=== PATIENT | female | born 1950 | race Asian ===

== ENCOUNTER 2017-06-13 10:55 | Outpatient (CLI) | payer MEDICARE, BC ==
[2017-06-13 18:14] LABS: CHOL/HDL RATIO 4.7 (<4.4); CHOLESTEROL 213 mg/dL; GLUCOSE,FASTING 111 mg/dL (70-100); HDL CHOLESTEROL 45 mg/dL; LDL CHOLESTEROL,CALCULATED 156 mg/dL; LDL/HDL RATIO 3.5 (<4.4); VLDL CHOLESTEROL 12 mg/dL
[2017-06-14 15:36] LABS: HEPATITIS C ANTIBODY NON-REACTIVE (NON-REACTIVE)
== END 2017-06-13 10:56 | disposition home or self-care (01) ==
LOC: LAB.F 10:55
PROVIDERS: ATTEND Internal Medicine
DX: Z00.00 Encounter for general adult medical examination without abnormal findings (principal); E78.5 Hyperlipidemia, unspecified; L70.9 Acne, unspecified; J30.9 Allergic rhinitis, unspecified; M19.90 Unspecified osteoarthritis, unspecified site; R73.01 Impaired fasting glucose; Z11.59 Encounter for screening for other viral diseases
CPT/HCPCS: 36415; 80061; 82947; 83721; 86803

== ENCOUNTER 2017-07-05 10:22 | Outpatient (CLI) | payer MEDICARE, BC ==
--- NOTE | 2017-07-09 14:45 | DEXA Report ---
DEXA: 07/05/2017 CLINICAL INDICATION: Postmenopausal. TECHNIQUE: Dual energy x-ray absorptiometry (DXA) was performed on a [employer] system. Regions measured are the AP spine, femoral neck, and, if needed, forearm. COMPARISON: None. In accordance with the International Society for Clinical Densitometry (ISCD) guidelines, data from previous exams may be reanalyzed using current recommendations and techniques. This is done to allow a more accurate basis for comparison with the current study. FINDINGS Data for the lumbar spine is as follows: REGION BMD (g/cm/cm) T-SCORE Z-SCORE L1 1.168 0.3 2.2 L2 1.213 0.1 2.0 L3 1.273 0.6 2.5 L4 1.279 0.7 2.5 L1-L4 1.238 0.5 2.3 NOTE: All evaluable vertebrae are used for classification. Data for the hip is as follows: REGION BMD (g/cm/cm) T-SCORE Z-SCORE Neck 0.859 -1.3 0.4 TOTAL 0.950 -0.5. 1.0 NOTE: The femoral neck or total proximal femur, whichever is lowest, is used for classification. IMPRESSION WHO CLASSIFICATION BASED ON THE INTERNATIONAL REFERENCE STANDARD IS OSTEOPENIA (LEFT FEMORAL NECK). FRACTURE RISK INCREASED. RECOMMENDATION: Patients with diagnosis of osteoporosis or osteopenia should have regular bone mineral density assessment. For those eligible for Medicare, routine testing is allowed once every 2 years. Testing frequency can be increased for patients who have rapidly progressing disease or for those who are receiving medical therapy to restore bone mass. COMMENT World Health Organization (WHO) definitions for osteoporosis and osteopenia: NORMAL BMD: T-score at 1.0 or higher, fracture risk is low. OSTEOPENIA BMD: T-score between 1.0 and -2.5, fracture risk is increased. OSTEOPOROSIS BMD: T-score at 2.5 or lower, fracture risk high. National Osteoporosis Foundation recommends: 1. Obtain adequate dietary calcium (at least 1200 mg per day) and vitamin D (400 -800 international units per day). 2. Participate, as appropriate, in regular weightbearing and muscle- strengthening exercise. 3. Avoid tobacco use and reduce alcohol and caffeine intake. 4. For more detailed information see the website at www.NOF.org. TD: 07/05/2017 16:34 ZHANG
== END 2017-07-05 10:23 | disposition home or self-care (01) ==
LOC: DI 10:22
PROVIDERS: ATTEND Internal Medicine
DX: M85.88 Other specified disorders of bone density and structure, other site (principal)
CPT/HCPCS: 77080

== ENCOUNTER 2017-07-05 10:23 | Outpatient (CLI) | payer MEDICARE, BC ==
--- NOTE | 2017-07-09 13:07 | Mammography Report ---
DIGITAL SCREENING MAMMOGRAM: 07/05/2017 CLINICAL INDICATION: A 67-year-old with history of late childbearing, family history of breast cancer for screening. COMPARISON: Films from [place], [place] dated 08/08/2013, 08/28/2012, 10/13/2011, 09/19/2010, 07/20/2009. TECHNIQUE: Routine CC and MLO projections were obtained of the breasts. FINDINGS: The breasts again demonstrate heterogeneously dense fibroglandular parenchyma bilaterally. Coarse, typically benign calcifications are present. No suspicious masses, clustered microcalcifications, or regions of architectural distortion are identified. IMPRESSION: BENIGN FINDINGS. RECOMMENDATION: Routine annual screening unless otherwise clinically indicated. BIRADS CATEGORY 2 - BENIGN FINDINGS. STANDARD QUALIFYING STATEMENTS: 1. This examination was reviewed with the aid of Computer-Aided Detection (CAD). 2. A negative or benign imaging report should not delay biopsy if clinically suspicious findings are present. Consider surgical consultation if warranted. More than 5% of cancers are not identified by imaging. 3. Dense breasts may obscure an underlying neoplasm. TD: 07/09/2017 13:07
== END 2017-07-05 10:24 | disposition home or self-care (01) ==
LOC: DI 10:23
PROVIDERS: ATTEND Internal Medicine
DX: Z12.31 Encounter for screening mammogram for malignant neoplasm of breast (principal); Z80.3 Family history of malignant neoplasm of breast
CPT/HCPCS: 77067

== ENCOUNTER 2018-06-26 08:49 | Outpatient (CLI) | payer MEDICARE, BC ==
[2018-06-26 09:28] LABS: CHOL/HDL RATIO 3.8 (<4.4); CHOLESTEROL 246 mg/dL; GLUCOSE,FASTING 114 mg/dL (70-100); HDL CHOLESTEROL 64 mg/dL; LDL CHOLESTEROL,CALCULATED 159 mg/dL; LDL/HDL RATIO 2.5 (<4.4); VLDL CHOLESTEROL 23 mg/dL
== END 2018-06-26 08:50 | disposition home or self-care (01) ==
LOC: LAB 08:49
PROVIDERS: ATTEND Internal Medicine
DX: J30.9 Allergic rhinitis, unspecified (principal); E78.5 Hyperlipidemia, unspecified; M19.90 Unspecified osteoarthritis, unspecified site; R73.01 Impaired fasting glucose
CPT/HCPCS: 36415; 80061; 82947; 83721

== ENCOUNTER 2019-02-03 15:35 | Outpatient (CLI) | payer MEDICARE, BC ==
--- NOTE | 2019-02-04 16:19 | Ultrasound Report ---
Reason: POSTMENOPAUSAL BLEEDING Procedure Date: 02/03/2019 Accession Number: [id number] / [id number] Procedure: US - Pelvic w/Transvaginal CPT Code: FULL RESULT: EXAM: PELVIC ULTRASOUND EXAM DATE: 02/03/2019 04:50 PM. CLINICAL HISTORY: POSTMENOPAUSAL BLEEDING. COMPARISON: None. TECHNIQUE: Realtime transabdominal pelvic scan performed to identify the uterus and adnexa and as an overview of other pelvic structures, followed by transvaginal scan to provide greater detail of the uterus and adnexa, with static image documentation. FINDINGS: Uterus: 6.3 x 5.1 x 4.7 cm, volume 80 cc. Normal overall size, heterogeneous echotexture. Masses: Several fibroids the largest 2.2 x 2.3 x 2.3 cm, posterior lower uterine segment on the left, possibly pedunculated. Endometrium: Endometrial echo not well seen. Cervix: Unremarkable. Right Ovary: 2.1 x 0.9 x 0.9 cm, volume 0.9 cc. Normal echotexture and blood flow. Left Ovary: Not well seen. 1.4 x 1 x 1.5 cm, volume 1.1 cc. Grossly unremarkable. Free Fluid: None. Other: None. IMPRESSION: Myomatous changes of the uterus. Poorly defined endometrial echo. Consider hysteroscopy or MRI if bleeding persists. RADIA
== END 2019-02-03 15:36 | disposition home or self-care (01) ==
LOC: DI 15:35
PROVIDERS: ATTEND Obstetrics & Gynecology
DX: D25.9 Leiomyoma of uterus, unspecified (principal)
CPT/HCPCS: 76830; 76856

== ENCOUNTER 2019-02-04 07:31 | Outpatient (CLI) | payer MEDICARE, BC ==
--- NOTE | 2019-02-04 10:16 | Mammography Report ---
Reason: SCREENING MAMMO Procedure Date: 02/04/2019 Accession Number: [id number] / [id number] Procedure: MGS - Screening Mammo Dig Bilat CPT Code: FULL RESULT: EXAM: Screening Mammo Dig Bilat DATE: 02/04/2019 7:49 AM CLINICAL HISTORY: Routine screening TECHNIQUE: (B) - Bilateral CC and MLO views were obtained. COMPARISON: 07/05/2017, 08/08/2013, 08/28/2012, 10/13/2011, 09/19/2010, and 07/20/2009. PARENCHYMAL PATTERN: (VD) - The breasts demonstrate extremely dense parenchyma bilaterally, limiting the sensitivity of mammography. FINDINGS: No significant interval change. There are no suspicious masses, skin thickening, calcifications, or areas of distortion. IMPRESSION: Negative examination. BI-RADS category 1. RECOMMENDATION: (ANNUAL) - Recommend routine annual screening mammography. BI-RADS CATEGORY: (1) - Negative. STANDARD QUALIFYING STATEMENTS: 1. This examination was reviewed with the aid of Computer-Aided Detection (CAD). 2. A negative or benign imaging report should not preclude biopsy if clinically suspicious findings are present. 3. Dense breasts may obscure an underlying neoplasm. 4. This examination was reviewed without the aid of 3D breast imaging (tomosynthesis).
== END 2019-02-04 07:32 | disposition home or self-care (01) ==
LOC: DI.S 07:31
DX: Z12.31 Encounter for screening mammogram for malignant neoplasm of breast (principal)
CPT/HCPCS: 77067

== ENCOUNTER 2020-02-11 07:41 | Outpatient (CLI) | payer MEDICARE, BC ==
[2020-02-11 15:34] LABS: BASOPHILS # (AUTO) 0.1 10^3/uL (0.0-0.1); BASOPHILS % (AUTO) 1.7 %; EOSINOPHILS # (AUTO) 0.1 10^3/uL (0.0-0.7); EOSINOPHILS % (AUTO) 2.2 %; HGB - HEMOGLOBIN 12.9 g/dL (12.0-16.0); LYMPHOCYTES # (AUTO) 1.8 10^3/uL (1.5-3.5); LYMPHOCYTES % (AUTO) 39.4 %; MEAN CORPUSCULAR HEMOGLOBIN 30.6 pg (27.0-31.0); MEAN CORPUSCULAR VOLUME 92.9 fL (81.0-99.0); MEAN PLATELET VOLUME 9.7 fL (7.9-10.8); MONOCYTES # (AUTO) 0.4 10^3/uL (0.0-1.0); MONOCYTES % (AUTO) 8.4 %; NEUTROPHILS # (AUTO) 2.2 10^3/uL (1.5-6.6); NEUTROPHILS % (AUTO) 48.1 %; PLT - PLATELET COUNT 248 10^3/uL (130-450); RED BLOOD COUNT 4.21 10^6/uL (4.20-5.40); RED CELL DISTRIBUTION WIDTH 12.6 % (12.0-15.0); WHITE BLOOD COUNT 4.6 x10^3/uL (4.8-10.8)
[2020-02-11 15:55] LABS: ALBUMIN 4.1 g/dL (3.2-5.5); ALBUMIN/GLOBULIN RATIO 1.3 (1.0-2.2); ALKALINE PHOSPHATASE 45 IU/L (42-121); ALT ALANINE AMINOTRANSFERASE 17 IU/L (10-60); AST ASPARTATE AMINOTRANSFERASE 17 IU/L (10-42); BILIRUBIN,TOTAL 0.8 mg/dL (0.2-1.0); BUN - BLOOD UREA NITROGEN 15 mg/dL (6-20); CALCIUM 8.9 mg/dL (8.5-10.3); CARBON DIOXIDE - CO2 28 mmol/L (21-32); CHLORIDE 105 mmol/L (101-111); CHOL/HDL RATIO 4.3 (<4.4); CHOLESTEROL 234 mg/dL; CREATININE 0.6 mg/dL (0.4-1.0); GLUCOSE 101 mg/dL (70-100); HDL CHOLESTEROL 54 mg/dL; LDL CHOLESTEROL,CALCULATED 161 mg/dL; SODIUM 141 mmol/L (135-145); TOTAL PROTEIN 7.2 g/dL (6.7-8.2); VLDL CHOLESTEROL 19 mg/dL
== END 2020-02-11 07:42 | disposition home or self-care (01) ==
LOC: LAB.S 07:41
PROVIDERS: ATTEND Registered Nurse
DX: Z79.899 Other long term (current) drug therapy (principal); K21.9 Gastro-esophageal reflux disease without esophagitis; Z13.220 Encounter for screening for lipoid disorders; Z13.29 Encounter for screening for other suspected endocrine disorder
CPT/HCPCS: 36415; 80053; 80061; 83721; 84443; 85025

== ENCOUNTER 2020-07-07 12:56 | Outpatient (CLI) | payer MEDICARE, BC ==
--- NOTE | 2020-07-07 16:16 | DEXA Report ---
PROCEDURE: Dexa Spine and/or Hip INDICATIONS: POST MENOPAUSAL TECHNIQUE: Dual energy x-ray absorptiometry (DXA) was performed on a [employer] System. Regions measur ed are the AP Spine, femoral neck, and if needed forearm. COMPARISON: None. FINDINGS: Lumbar Spine: Bone Mineral Density 1.301 g/cm/cm,T score 1.0, compared to 0.5 Left Hip: Bone Mineral Density 0.959 g/cm/cm,T score -0.4, compared to -0.5 Left Femoral Neck: Bone Mineral Density 0.883 g/cm/cm, T score -1.1, compared to -1.3 (T score greater or equal to -1.0: NORMAL) (T score from -1.1 to -2.4: OSTEOPENIA) (T score less than or equal to -2.5 to: OSTEOPOROSIS) Impression: Minimal osteopenia within the left femoral neck. Overall improved bone mineral density. Patients with diagnosis of osteoporosis or osteopenia should have regular bone mineral density assess ment. For those eligible for Medicare, routine testing is allowed once every 2 years. Testing frequ ency can be increased for patients who have rapidly progressing disease or for those who are receivin g medical therapy to restore bone mass. Reviewed by: Kathleen Felix MD on 07/07/2020 4:15 PM PDT Approved by: Kathleen Felix MD on 07/07/2020 4:15 PM PDT Station ID: [id number]
== END 2020-07-07 12:57 | disposition home or self-care (01) ==
LOC: DI 12:56
PROVIDERS: ATTEND Registered Nurse
DX: M85.88 Other specified disorders of bone density and structure, other site (principal); Z78.0 Asymptomatic menopausal state

== ENCOUNTER 2020-07-07 13:03 | Outpatient (CLI) | payer MEDICARE, BC ==
--- NOTE | 2020-07-08 07:46 | Mammography Report ---
BILATERAL DIGITAL SCREENING MAMMOGRAM 3D/2D: 07/07/2020 CLINICAL: Routine screening. Comparison is made to exams dated: 02/04/2019 mammogram, 07/05/2017 mammogram - [facility], and 08/28/2012 mammogram - [facility]. The tissue of both breasts is predominant ly fatty. No significant masses, calcifications, or other findings are seen in either breast. There has been no significant interval change. IMPRESSION: NEGATIVE There is no mammographic evidence of malignancy. A 1 year screening mammogram is recommended. This exam was interpreted at Station ID: [id number]. NOTE: For mammograms, a report in lay terms will be sent to the patient. Approximately 15% of breast malignancies will not be visualized mammographically. In the management of a palpable breast mass, a negative mammogram must not discourage biopsy of a clinically suspicious lesion. Electronically Signed By: Isra White M.D., jr/penrad:07/07/2020 15:46:37 ACR BI-RADS Category 1: Negative 3341F PARENCHYMAL PATTERN: (F) - The breast(s) demonstrate(s) diffuse fatty replacement. BI-RADS CATEGORY: (1) - 1 RECOMMENDATION: (ANNUAL) - Recommend routine annual screening mammography. [id number] 1 year screening LATERALITY: (B)
== END 2020-07-07 13:04 | disposition home or self-care (01) ==
LOC: DI 13:03
DX: Z12.31 Encounter for screening mammogram for malignant neoplasm of breast (principal)

== ENCOUNTER 2021-04-07 08:21 | Outpatient (CLI) | payer MEDICARE, BC ==
--- NOTE | 2021-04-07 09:30 | XRAY Report ---
PROCEDURE: Shoulder 3 View LT INDICATIONS: LEFT SHOULDER PAIN TECHNIQUE: 4 views of the shoulder were acquired. COMPARISON: None. FINDINGS: Bones: No fractures or dislocations. [id number] acromioclavicular joint and glenohumeral join t osteophytic changes are seen. No suspicious bony lesions. Prominent downward exostosis involving mi d to distal left clavicular shaft is seen. Visualized ribs appear intact. Soft tissues: No suspicious soft tissue calcifications. IMPRESSION: No acute shoulder fracture or dislocation. Mild to moderate shoulder joint osteoarthriti s. Prominent downward excess tendinosis involving mid to distal left clavicular shaft, which may repr esent an old avulsion injury involving coracoclavicular ligament. Reviewed by: Alec Dias MD on 04/07/2021 9:29 AM PST Approved by: Alec Dias MD on 04/07/2021 9:29 AM [facility] Station ID: [id number]
--- NOTE | 2021-04-07 09:31 | XRAY Report ---
PROCEDURE: Knee 4 View LT INDICATIONS: LEFT KNEE JOINT PAIN TECHNIQUE: 4 views of the left knee(s) were acquired. COMPARISON: None. FINDINGS: Bones: No fractures or dislocations. There is no patella subluxation. Moderate tricompartmental oste oarthritis is seen most prominent in medial femoral tibial compartment. No suspicious bony lesions. Soft tissues: No joint effusion. No suspicious soft tissue calcifications. IMPRESSION: Moderate tricompartmental osteoarthritis in left knee most prominent in medial femoral t ibial compartment. No fracture or dislocation. No joint effusion. Reviewed by: Alec Dias MD on 04/07/2021 9:30 AM [facility] Approved by: Alec Dias MD on 04/07/2021 9:30 AM PST Station ID: [id number]
--- NOTE | 2021-04-07 09:32 | XRAY Report ---
PROCEDURE: Hip w/Pelvis 1V LT INDICATIONS: LEFT HIP PAIN TECHNIQUE: AP pelvis with lateral view(s) of the left hip(s). COMPARISON: None. FINDINGS: Bones: No fractures or dislocations. Symmetric appearing mild to moderate bilateral hip joint osteoa rthritis. No evidence of avascular necrosis of femoral head. Prominence of left superior femoral head neck junction is seen which can be seen associated with cam type femoral acetabular impingement. Pel omi ring appears intact. No suspicious bony lesions. Soft tissues: The visualized bowel gas pattern is normal. No suspicious soft tissue calcifications. IMPRESSION: Symmetric appearing mild to moderate bilateral hip joint osteoarthritis as above. No frac ture or dislocation. No evidence of avascular necrosis of femoral head. Reviewed by: Alec Dias MD on 04/07/2021 9:30 AM PST Approved by: Alec Dias MD on 04/07/2021 9:30 AM PST Station ID: [id number]
== END 2021-04-07 23:59 | disposition home or self-care (01) ==
LOC: DI.N 08:21
PROVIDERS: ATTEND Physician Assistant
DX: M19.012 Primary osteoarthritis, left shoulder (principal); M75.82 Other shoulder lesions, left shoulder; M17.12 Unilateral primary osteoarthritis, left knee; M16.0 Bilateral primary osteoarthritis of hip

== ENCOUNTER 2021-04-12 11:00 | Outpatient (CLI) | payer MEDICARE, BC ==
--- NOTE | 2021-04-12 12:12 | XRAY Report ---
PROCEDURE: Clavicle BILAT INDICATIONS: CLAVICLE PX TECHNIQUE: 2 views of the clavicle were acquired. COMPARISON: Left shoulder radiograph dated April 07, 2021. FINDINGS: BONES: No acute, displaced fracture or dislocation. Left: Mild osteophytosis of the AC joint. Right: Mild osteophytosis of the AC joint with narrowing. SOFT TISSUES: Calcific densities overlying the left humeral head, likely reflecting calcific tendinop athy. IMPRESSION: 1.Bilateral AC joint degeneration as detailed above. 2.Left rotator cuff calcific tendinopathy. Reviewed by: Viral Jarvis MD on 04/12/2021 12:11 PM PST Approved by: Viral Jarvis MD on 04/12/2021 12:11 PM PST Station ID: [id number]
== END 2021-04-12 23:59 | disposition home or self-care (01) ==
LOC: DI.N 11:00
PROVIDERS: ATTEND Physician Assistant
DX: M19.012 Primary osteoarthritis, left shoulder (principal); M19.011 Primary osteoarthritis, right shoulder; M75.92 Shoulder lesion, unspecified, left shoulder

== ENCOUNTER 2021-05-24 10:56 | Outpatient (CLI) | payer MEDICARE, BC ==
--- NOTE | 2021-05-25 13:43 | MRI Report ---
PROCEDURE: Cervical Spine W/O INDICATIONS: Cervical radiculopathy TECHNIQUE: Noncontrast sagittal T1 spin echo and T2 fast spin echo, sagittal STIR, foraminal oblique sagittal T2 fast spin echo, and axial gradient echo or T2 fast spin echo through the cervical spine. COMPARISON: None. FINDINGS: Image quality: Excellent. Alignment and Curvature: There is normal bony alignment. Bone Marrow: Marrow demonstrates normal overall signal. Spinal Cord: Visualized spinal cord has normal size and signal. No cerebellar tonsillar herniation. Paraspinous Soft Tissues: No paravertebral masses. Prevertebral soft tissues are normal in thicknes s. C2-C3: No spinal canal or neural foraminal stenosis. C3-C4: Moderate bilateral neural foraminal narrowing due to facet and uncovertebral hypertrophy. Mi ld spinal canal narrowing due to posterior disc-osteophyte complex and buckling of the ligamentum fla vum. C4-C5: Moderate bilateral neural foraminal stenosis due to facet and uncovertebral hypertrophy. Mild spinal canal narrowing due to posterior disc-osteophyte complex and buckling of the ligamentum flavu m. C5-C6: Moderate bilateral neural foraminal stenosis due to facet and uncovertebral hypertrophy. Mild spinal canal stenosis due to a combination of posterior disc-osteophyte complex and buckling of the ligamentum flavum. C6-C7: Moderate spinal canal stenosis due to a combination of posterior disc-osteophyte complex and buckling of the ligamentum flavum. CSF surrounding the ventral and dorsal cord is completely effaced. There is no cord signal abnormality or significant cord flattening. Facet and uncovertebral hypertro phy contribute to severe bilateral neural foraminal stenosis. C7-T1: No spinal canal or neural foraminal stenosis. IMPRESSION: Multilevel multifactorial degenerative changes. Moderate spinal canal stenosis at C6-C7 and mild spinal canal stenosis from C3-C4 through C5-C6. Moderate neural foraminal stenosis bilaterally from C3-C4 through C5-C6, with severe bilateral neural foraminal stenosis at C6-C7. Reviewed by: Isra White MD on 05/25/2021 1:42 PM PST Approved by: Isra White MD on 05/25/2021 1:42 PM PST Station ID: [id number]
--- NOTE | 2021-05-25 13:47 | MRI Report ---
PROCEDURE: Lumbar Spine W/O INDICATIONS: Lumbar radiculitis TECHNIQUE: Noncontrast sagittal T1 spin echo and T2 fast echo, sagittal STIR, axial T1 and T2 fast spin echo thr ough the lumbar spine. In cases with scoliosis, additional coronal T2 fast spin echo may be performe d. COMPARISON: None. FINDINGS: Image quality: Excellent. Alignment and Curvature: There is normal bony alignment. Bone Marrow: Marrow is of normal overall signal. No acute vertebral body compression fractures. Spinal Cord: Conus medullaris terminates at the normal level. Visualized cord demonstrates normal s ignal and size. Regional Soft Tissues: Prevertebral and paraspinous soft tissues are within normal limits. T12-L1: No spinal canal or neural foraminal stenosis. L1-L2: No spinal canal or neural foraminal stenosis. L2-L3: No spinal canal or neural foraminal stenosis. Moderate facet hypertrophy. L3-L4: Diffuse disc bulge flattens the ventral thecal sac with mild displacement of the descending L4 nerve roots in the subarticular zones, left greater than right. Moderate bulky facet hypertrophy f urther contributes to overall mild to moderate subarticular zone stenosis. Foraminal components of th e disc bulge and facet hypertrophy contribute to mild left and trace right neural foraminal stenosis. L4-L5: Diffuse disc bulge flattens and indents the ventral thecal sac, with mild displacement of th e descending bilateral L5 nerve roots in both subarticular zones, right greater than left (series 701 axial T2 image 11). Foraminal components of the disc bulge and facet hypertrophy contribute to mild right greater than left neural foraminal stenosis. L5-S1: Disc bulge flattens the ventral thecal sac without significant mass effect upon the traversi ng S1 nerve roots. No neural foraminal stenosis. Mild facet hypertrophy. IMPRESSION: No definite evidence of focal nerve root impingement, although there is displacement of the descendin g L4 and L5 nerve roots within the subarticular zones at the L3-L4 and L4-L5 levels, respectively. Co rrelate for any corresponding radicular symptoms. No significant neural foraminal narrowing identified. Reviewed by: Isra White MD on 05/25/2021 1:46 PM PST Approved by: Isra White MD on 05/25/2021 1:46 PM PST Station ID: [id number]
== END 2021-05-24 10:57 | disposition home or self-care (01) ==
LOC: DI 10:56
PROVIDERS: ATTEND Physical Medicine & Rehabilitation
DX: R93.7 Abnormal findings on diagnostic imaging of other parts of musculoskeletal system (principal); M47.26 Other spondylosis with radiculopathy, lumbar region; M48.061 Spinal stenosis, lumbar region without neurogenic claudication; M47.27 Other spondylosis with radiculopathy, lumbosacral region; M51.17 Intervertebral disc disorders with radiculopathy, lumbosacral region; M47.22 Other spondylosis with radiculopathy, cervical region; M50.11 Cervical disc disorder with radiculopathy, high cervical region; M48.02 Spinal stenosis, cervical region

== ENCOUNTER 2021-08-22 11:30 | Outpatient (CLI) | payer MEDICARE, BC ==
[2021-08-22 14:58] LABS: CHOLESTEROL 253 mg/dL; HDL CHOLESTEROL 64 mg/dL; LDL CHOLESTEROL,CALCULATED 168 mg/dL; LDL/HDL RATIO 2.6 (<4.4); TRIGLYCERIDES 103 mg/dL; VLDL CHOLESTEROL 21 mg/dL
[2021-08-22 19:58] LABS: ESTIMATED AVERAGE GLUCOSE 126 mg/dL (70-100)
== END 2021-08-22 11:31 | disposition home or self-care (01) ==
LOC: LAB.S 11:30
PROVIDERS: ATTEND Internal Medicine
DX: E78.5 Hyperlipidemia, unspecified (principal); R73.01 Impaired fasting glucose
CPT/HCPCS: 36415; 80061; 83036; 83721

== ENCOUNTER 2022-09-13 10:51 | Outpatient (CLI) | payer MEDICARE, BC ==
[2022-09-13 11:28] LABS: CHOLESTEROL 259 mg/dL; HDL CHOLESTEROL 64 mg/dL; LDL CHOLESTEROL,CALCULATED 179 mg/dL; LDL/HDL RATIO 2.8 (<4.4); TRIGLYCERIDES 80 mg/dL; VLDL CHOLESTEROL 16 mg/dL
[2022-09-13 11:40] LABS: THYROID STIMULATING HORMONE 1.21 uIU/mL (0.34-5.60)
[2022-09-13 12:47] LABS: BILIRUBIN,URINE NEGATIVE (NEGATIVE); GLUCOSE, URINE (UA) NEGATIVE (NEGATIVE); KETONES,URINE (UA) NEGATIVE (NEGATIVE); LEUKOCYTE ESTERASE, URINE NEGATIVE (NEGATIVE); NITRITE,URINE NEGATIVE (NEGATIVE); OCCULT BLOOD,URINE NEGATIVE (NEGATIVE); PROTEIN,URINE NEGATIVE (NEGATIVE); UROBILINOGEN,URINE 0.2 (NORMAL) E.U./dL (NORMAL)
[2022-09-13 13:16] LABS: CLARITY,URINE CLEAR (CLEAR)
[2022-09-13 13:56] LABS: RBC,URINE 0-5 /HPF (0-5); WBC,URINE 0-3 /HPF (0-5)
[2022-09-13 13:57] LABS: BACTERIA,URINE Rare /HPF (None Seen); SQUAMOUS EPITHELIAL CELL,UR RARE Squamous (<= Few)
[2022-09-13 14:10] LABS: ESTIMATED AVERAGE GLUCOSE 131 mg/dL (70-100); HEMOGLOBIN A1c% 6.2 % (4.27-6.07)
--- NOTE | 2022-09-14 08:57 | Mammography Report ---
BILATERAL DIGITAL SCREENING MAMMOGRAM 3D/2D: 09/13/2022 CLINICAL: Routine screening. Comparison is made to exams dated: 07/07/2020 mammogram, 02/04/2019 mammogram, 07/05/2017 mammogram - [facility], and 08/28/2012 mammogram - [facility]. Both breasts are almost entirely fatty (category a/<25% glandular tissue). No significant masses, calcifications, or other findings are seen in either breast. There has been no significant interval change. IMPRESSION: NEGATIVE There is no mammographic evidence of malignancy. A 1 year screening mammogram is recommended. Based on the Tyrer Cuzick model (a risk assessment model) the patients lifetime risk is 10.0% and he r 10 year risk is 6.9%. According to the ACR, ACS, and NCCN guidelines, an annual breast MRI exam marlin ng with mammogram is recommended if the patients lifetime risk is 20% or greater. This exam was interpreted at Station ID: [id number]. NOTE: For mammograms, a report in lay terms will be sent to the patient. Approximately 15% of breast malignancies will not be visualized mammographically. In the management of a palpable breast mass, a negative mammogram must not discourage biopsy of a clinically suspicious lesion. Electronically Signed By: Yusef montiel/cody:09/13/2022 12:52:55 letter sent: No_Letter ACR BI-RADS Category 1: Negative 3341F PARENCHYMAL PATTERN: (F) - The breast(s) demonstrate(s) diffuse fatty replacement. BI-RADS CATEGORY: (1) - 1 Mammogram [id number] 1 year screening LATERALITY: (B)
== END 2022-09-13 10:52 | disposition home or self-care (01) ==
LOC: DI 10:51
DX: Z12.31 Encounter for screening mammogram for malignant neoplasm of breast (principal); R35.0 Frequency of micturition; R45.4 Irritability and anger; Z13.1 Encounter for screening for diabetes mellitus; Z13.220 Encounter for screening for lipoid disorders; F34.1 Dysthymic disorder
CPT/HCPCS: 36415; 80061; 81001; 83036; 83721; 84443; 87086